=== PATIENT | male | born 1995 | race American Indian/Alaskan Native ===

== ENCOUNTER 2019-09-26 09:29 | Emergency (ER) | payer SELFPAY ==
--- NOTE | 2019-09-26 10:44 | XRay Report ---
RIGHT ANKLE 3 VIEWS INDICATION: step off truck and injured his ankle.. COMPARISON: None. IMPRESSION: Mild lateral soft tissue swelling is suspected. No acute osseous findings or joint path ology is appreciated on x-ray. Signer Name: Jaspreet Garcia Jr, MD Signed: 09/26/2019 10:40 AM Workstation Name: [id number]
[2019-09-26 10:58] VITALS: BP 110/82
--- NOTE | 2019-09-26 11:01 | Emergency Department Report ---
ED Lower Extremity HPI - General Chief Complaint: Extremity Injury, Lower Stated Complaint: RT ANKLE PAIN Time Seen by Provider: 09/26/19 10:55 Source: patient Mode of arrival: Ambulatory Limitations: No Limitations - History of Present Illness Initial Comments: This is a 24-year-old male nontoxic, well nourished in appearance, no acute signs of distress presents to the ED with c/o of right ankle pain after twisting it last night. Patient denies any other trauma or injuries. Denies decreased ROM, joint swelling, redness, or abnormal gait. Denies any fever, chills, nausea, vomiting, headache, stiff neck, chest pain or shortness of breath. Patient denies any numbness or tingling. Denies any allergies. MD Complaint: ankle injury -: Last night Injury: Ankle: Right Severity: mild Severity scale (0 -10): 8 Improves With: immobilization Worsens With: weight bearing, movement Associated Symptoms: swelling, able to partially bear weight, ambulatory. denies: snap/pop sensation, numbness, tingling, unable to bear weight - Related Data Previous Rx's Medication Instructions Recorded Last Taken Type Gentamicin 0.3% Ophth Soln 2 drops OP Q4H #30 bottle 01/24/16 Unknown Rx Allergies Allergy/AdvReac Type Severity Reaction Status Date / Time No Known Allergies Allergy Unverified 01/24/16 20:00 ED Review of Systems ROS: Stated complaint: RT ANKLE PAIN Other details as noted in HPI Constitutional: denies: chills, fever Eyes: denies: eye pain, eye discharge, vision change ENT: denies: ear pain, throat pain Respiratory: denies: cough, shortness of breath, wheezing Cardiovascular: denies: chest pain, palpitations Endocrine: no symptoms reported Gastrointestinal: denies: abdominal pain, nausea, diarrhea Genitourinary: denies: urgency, dysuria Musculoskeletal: denies: back pain, joint swelling, arthralgia Skin: denies: rash, lesions Neurological: denies: headache, weakness, paresthesias Psychiatric: denies: anxiety, depression Hematological/Lymphatic: denies: easy bleeding, easy bruising ED Past Medical Hx - Past Medical History Previous Medical History?: No - Surgical History Past Surgical History?: No - Social History Smoking Status: Never Smoker Substance Use Type: None - Medications Home Medications: Home Medications Medication Instructions Recorded Confirmed Last Taken Type Gentamicin 0.3% Ophth Soln 2 drops OP Q4H #30 bottle 01/24/16 Unknown Rx ED Physical Exam - General Limitations: No Limitations General appearance: alert, in no apparent distress - Head Head exam: Present: atraumatic, normocephalic - Eye Eye exam: Present: normal appearance - Neck Neck exam: Present: normal inspection, full ROM. Absent: tenderness, meningismus, lymphadenopathy - Extremities Exam Extremities exam: Present: normal inspection, full ROM, tenderness, normal capillary refill. Absent: joint swelling - Expanded Lower Extremity Exam Right Hip exam: Present: normal inspection, full ROM. Absent: tenderness, swelling Upper Leg exam: Present: normal inspection, full ROM. Absent: tenderness, swelling Knee exam: Present: normal inspection, full ROM. Absent: tenderness, swelling Lower Leg exam: Present: normal inspection, full ROM. Absent: tenderness, swelling Ankle exam: Present: normal inspection, full ROM, tenderness, swelling. Absent: abrasion, laceration, ecchymosis, deformity, crepidus, dislocation, erythema, anterior draw sign Foot/Toe exam: Present: normal inspection, full ROM. Absent: tenderness, swelling Neuro vascular tendon exam: Present: no vascular compromise Gait: Positive: observed and limited by pain - Back Exam Back exam: Present: normal inspection, full ROM - Neurological Exam Neurological exam: Present: alert, oriented X3 - Psychiatric Psychiatric exam: Present: normal affect, normal mood - Skin Skin exam: Present: warm, dry, intact, normal color. Absent: rash ED Course - Reevaluation(s) Reevaluation #1: 09/26/19 11:00 Patient is speaking in full sentences with no signs of distress noted. ED Lower Extremity MDM - Radiology Data Referring Physician: ED DOC Patient Name: HARPAL GOLDBERG Date of : 1995 Sex: Male Report Date: 2019-09-26 Report Status: Finalized [facility] [address] [place] [address] XRay Report Signed Patient: HARPAL GOLDBERG MR#: [id number] : 1995 Acct:[id number] Age/Sex: 24 / M ADM Date: 09/26/19 Loc: ED Attending Dr: Ordering Physician: ED MD ARMANDO Date of Service: 09/26/19 Procedure(s): XR ankle 3+V RT Accession Number(s): [id number] cc: ED MD ARMANDO Fluoro Time In Minutes: RIGHT ANKLE 3 VIEWS INDICATION: step off truck and injured his ankle.. COMPARISON: None. IMPRESSION: Mild lateral soft tissue swelling is suspected. No acute osseous findings or joint pathology is appreciated on x-ray. Signer Name: Jaspreet Lipscomb Jr, MD Signed: 09/26/2019 10:40 AM Workstation Name: [id number] Transcribed By: TTR Dictated By: JASPREET LIPSCOMB JR, MD Electronically Authenticated By: JASPREET LIPSCOMB JR, MD Signed Date/Time: 09/26/19 1040 DD/ 1039 TD/TT: - Medical Decision Making This is a 24-year-old male that presents with right ankle sprain. Patient is stable and was examined by me. Xrays that was done prior to me seeing patient is unremarkable. Patient was insturcted to get OTC ankle immboilzer. No joint effusion, no redness, no decreased ROM. Normal gait. Patient was instructed to Follow-up with a orthopedic doctor in 3-5 days or if symptoms worsen and continue return to emergency room as soon as possible. At time of discharge, the patient does not seem toxic or ill in appearance. No acute signs of distress noted. Patient agrees to discharge treatment plan of care. No further questions noted by the patient. Critical care attestation.: If time is entered above; I have spent that time in minutes in the direct care of this critically ill patient, excluding procedure time. ED Disposition Clinical Impression: Right ankle sprain Qualifiers: Encounter type: initial encounter Involved ligament of ankle: unspecified ligament Qualified Code(s): S93.401A - Sprain of unspecified ligament of right ankle, initial encounter Disposition: MED SCREENING EXAM-LEFT Is pt being admited?: No Does the pt Need Aspirin: No Condition: Stable Instructions: RICE Therapy (ED), Ankle Sprain (ED) Additional Instructions: Follow-up with a orthopedic doctor in 3-5 days or if symptoms worsen and continue return to the emergency department as soon as possible. Referrals: PRIMARY CAREMD [Referring] - 3-5 Days JOSHUA QUILES MD [Staff Physician] - 3-5 Days
== END 2019-09-26 11:04 | disposition left against medical advice (07) ==
LOC: ED 09:29
DX: S93.401A Sprain of unspecified ligament of right ankle, initial encounter (principal); Z53.21 Procedure and treatment not carried out due to patient leaving prior to being seen by health care provider; X50.1XXA Overexertion from prolonged static or awkward postures, initial encounter; Y93.89 Activity, other specified; Y92.89 Other specified places as the place of occurrence of the external cause; Y99.8 Other external cause status

== ENCOUNTER 2021-06-18 17:04 | Emergency (ER) | payer OTHER ==
[2021-06-18] MEDS ORDERED: KETOROLAC 10 MG TAB PO ONE (18:01)
[2021-06-18] MEDS ORDERED: oxyCODONE /ACETAMINOPHEN 5-325MG TAB PO ONE (18:01)
--- NOTE | 2021-06-18 18:31 | XRay Report ---
LEFT TIBIA AND FIBULA 2 VIEWS INDICATION / CLINICAL INFORMATION: injury pain and swelling. COMPARISON: None available. FINDINGS: BONES / JOINT(S): Mildly comminuted fibular head fracture. No additional bony injury identified. No s ignificant arthritis. SOFT TISSUES: No significant abnormality. ADDITIONAL FINDINGS: None. Signer Name: Dmitry Canales MD Signed: 06/18/2021 6:27 PM Workstation Name: [id number]
--- NOTE | 2021-06-18 18:33 | XRay Report ---
LEFT KNEE 3 VIEWS INDICATION / CLINICAL INFORMATION: injury, pain and swelling. COMPARISON: None available. FINDINGS: BONES / JOINT(S): Fibular head fracture. No significant arthritis. SOFT TISSUES: Moderate/large joint effusion. ADDITIONAL FINDINGS: None. Signer Name: Dmitry Canales MD Signed: 06/18/2021 6:28 PM Workstation Name: [id number]
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
[2021-06-18 21:07] VITALS: BP 142/72
== END 2021-06-18 21:08 | disposition home or self-care (01) ==
LOC: ED 17:04
DX: S82.402A Unspecified fracture of shaft of left fibula, initial encounter for closed fracture (principal); V89.2XXA Person injured in unspecified motor-vehicle accident, traffic, initial encounter; Y93.89 Activity, other specified; Y92.89 Other specified places as the place of occurrence of the external cause; Y99.8 Other external cause status
CPT/HCPCS: 99283